=== PATIENT | female | born 1945 | race Caucasian/White ===

== ENCOUNTER 2023-04-03 08:23 | Outpatient (RCR) | payer MEDICARE, SELFPAY | END 2023-04-03 23:59 | disposition home or self-care (01) | LOC: RPT 08:23 | PROVIDERS: ATTENDING PHYSICIAN Family Medicine | DX: M54.12 Radiculopathy, cervical region (principal) | CPT/HCPCS: 97110; 97162 ==

== ENCOUNTER 2023-05-06 10:25 | Outpatient (RCR) | payer MEDICARE, SELFPAY | END 2023-05-06 23:59 | disposition home or self-care (01) | LOC: RPT 10:25 | PROVIDERS: ATTENDING PHYSICIAN Family Medicine | DX: M54.12 Radiculopathy, cervical region (principal); Z73.6 Limitation of activities due to disability; M79.602 Pain in left arm | CPT/HCPCS: 97010; 97110; 97112 ==

== ENCOUNTER → 2023-07-01 14:10 | Outpatient (REF) | payer MEDICARE, SELFPAY | LOC: WDC 14:10 | PROVIDERS: ATTENDING PHYSICIAN Family Medicine | DX: N64.4 Mastodynia (principal); Z87.2 Personal history of diseases of the skin and subcutaneous tissue | CPT/HCPCS: 76642; 77062; 77066 ==

== ENCOUNTER → 2023-10-17 10:15 | Outpatient (REF) | payer MEDICARE, SELFPAY | LOC: MRI 10:15 | PROVIDERS: ATTENDING PHYSICIAN Family Medicine | DX: M25.512 Pain in left shoulder (principal); G89.29 Other chronic pain; M54.12 Radiculopathy, cervical region | CPT/HCPCS: 72141 ==

== ENCOUNTER 2023-11-03 16:40 | Outpatient (RCR) | payer MEDICARE, SELFPAY | END 2023-11-03 23:59 | disposition home or self-care (01) | LOC: RPT 16:40 | PROVIDERS: ATTENDING PHYSICIAN Family Medicine | DX: M54.12 Radiculopathy, cervical region (principal); G89.29 Other chronic pain; M25.512 Pain in left shoulder | CPT/HCPCS: 97010; 97110; 97162 ==

== ENCOUNTER 2023-11-26 15:59 | Outpatient (RCR) | payer MEDICARE, SELFPAY | END 2023-11-26 23:59 | disposition home or self-care (01) | LOC: RPT 15:59 | PROVIDERS: ATTENDING PHYSICIAN Family Medicine | DX: M54.12 Radiculopathy, cervical region (principal); G89.29 Other chronic pain; M25.512 Pain in left shoulder; Z73.6 Limitation of activities due to disability | CPT/HCPCS: 97010; 97110; 97112 ==

== ENCOUNTER 2023-11-28 11:44 | Emergency (ER) | payer MEDICARE, SELFPAY ==
[2023-11-28 11:51] VITALS: BP 171/95
[2023-11-28 13:10] VITALS: BMI 26.5
--- NOTE | 2023-11-28 14:33 | ED.GENMED ---
History of Present Illness
General
Chief Complaint: Musculo-Skeletal Complaint
Source: patient
Exam Limitations: none
Time Seen by Provider: 11/28/23 13:50
Nursing documentation reviewed up to this point in time: agreed with
History of Present Illness
History of Present Illness:
Patient is a 78-year-old female who presents to the ER complaining of neck pain rating down left arm. She reports she was diagnosed with a pinched nerve in her neck. She had an MRI October 16. She recently saw orthopedics, [facility]
on Thursday and had a shot in her neck and is scheduled for an epidural on but cannot wait. She feels pain in her posterior neck and has pain with movement of neck and radiates to left shoulder arm. She denies any numbness tingling or
weakness. She does have a prescription for Percocet but was afraid to take the whole tablet and took a quarter of the tablet.
Past History
Past History
ED Past Medical History: HTN and Psychiatric (Anxiety)
ED Past Surgical History: Cholecystectomy, Tonsilectomy and Other (Cyst removed from bilateral breasts)
Review of Systems
Review of Systems
Allergies reviewed?: Yes
All Other Systems: ROS reviewed and negative except as documented in HPI and ROS
Constitutional: Reports no symptoms; Denies fever, fatigue or chills
Musculoskeletal: Reports neck pain and other (Neck pain radiating to left arm )
Skin: Reports no symptoms
Psychiatric: Reports no symptoms
Phy Exam
General Physical Exam
General Presentation: no apparent distress
General age: appears stated age
General Skin: warm and dry
General Habitus: normal
General Mental: alert
Neurological Exam
Neurological Exam: alert and oriented x3
Musculoskeletal Exam
Musculoskeletal Exam: other (Tender throughout theCervical muscle,+ discomfort with movement of neck extension flexion right and left movement )
Skin Exam
Skin Exam: normal color and warm/dry
Course
Orders/Labs/Results
Orders:
Orders
11/28/23 14:29
diazePAM [Valium Injection] 5 mg IM NOW STA
11/28/23 14:32
Acetaminophen [Tylenol] 1,000 mg PO NOW STA
Ketorolac [Toradol] 30 mg IM NOW STA
Lidocaine [Lidocaine 4% Patch] 1 patch TOPICAL NOW STA
Apply Lidocaine patch(s) to:: neck
Vital Signs
Initial and Last Documented VS:
Initial Vital Signs
Temp Pulse Resp BP Pulse Ox
99.7 F 106 18 171/95 96
11/28/23 11:51 11/28/23 11:51 11/28/23 11:51 11/28/23 11:51 11/28/23 11:51
Last Documented Vital Signs
Temp Pulse Resp BP Pulse Ox
99.7 F 87 18 169/81 96
11/28/23 11:51 11/28/23 16:00 11/28/23 11:51 11/28/23 16:00 11/28/23 11:51
MDM/Problems Addressed
Differential Diagnosis Includes:
not limited to: Cervical radiculopathy, muscle spasm
MDM/Problems Addressed:
Patient with pinched nerve in neck confirmed by MRI has an appointment with orthopedics again for epidural this . She has obvious muscle spasm in the neck with radiculopathy down her left arm. She was given Valium and Toradol here feeling
better. She does have prescription for Percocet . Will DC with steroids for the next 4 days as she has the epidural the following day on . Discussed warm moist heat and gentle range of motion.
*Critical Care Note
Total Time (30-74mins, 75-104mins- exclusive of procedures): Not Applicable
ED Attending Note
-
Portions of this chart may have been created with voice recognition software.� Occasional wrong word or��sound alike� substitutions may have occurred due to the inherent limitations of voice recognition software.
Discharge Plan
Departure
Patient Disposition: Home (Routine Discharge)
Date of Disposition: 11/28/23
Time of Disposition: 16:05
Patient with high blood pressure during this ER visit?: Yes
Condition: Fair
Covid-19: Not Applicable
Discharge Problem:
Cervical radiculopathy, Muscle spasm
Instructions: Radiculopathy (DC), Muscle Spasm ED
Prescriptions:
New
prednisone 20 mg tablet
40 mg PO DAILY Qty: 8 0RF
No Action
enalapril maleate 10 MG tablet
10 mg PO 1200,2200
amlodipine 2.5 MG tablet
2.5 mg PO HS
simvastatin 40 MG tablet
40 mg PO 1800
alprazolam 0.25 MG tablet
0.25 mg PO Q8HPRN PRN (Reason: anxiety)
aspirin 81 MG tablet,delayed release (DR/EC)
81 mg PO DAILY
calcium carbonate 600 MG tablet
600 mg PO 1800
raloxifene 60 MG tablet
60 mg PO DAILY
fluticasone propionate 1 SPRAY spray,suspension
1 spray intranasal DAILY
loratadine 10 MG tablet
5 mg PO DAILY
magnesium oxide 250 MG tablet
250 mg PO 1800
coenzyme Q10 [Co Q-10] 200 MG capsule
200 mg PO BID
fish oil-dha-epa 1 EACH capsule
1 ea PO BID
cholecalciferol (vitamin D3) 1,000 UNITS tablet
1,000 units PO BID
vitamin E (dl, acetate) 400 UNITS capsule
400 units PO BID
multivitamin with folic acid [Tab-A-Cole] 1 TABLET tablet
1 tab PO DAILY
Referrals:
Katya Beltran, [Family Provider] -
Activity Restrictions/Additional Instructions:
Follow-up with your orthopedics physician for epidural as scheduled. You may continue your Percocet as needed. A prescription for prednisone to take daily for the next 4 days was sent to your pharmacy take as directed. Return if any worsening of
symptoms
Interventions
Interventions:
*Risk Screen - Suicide Last Done: 11/28/23 11:51
*General Assessment Last Done: 11/28/23 11:51
*Neglect/Abuse Screening Last Done: 11/28/23 11:51
ED- Fall Risk Assessment Last Done: 11/28/23 13:15
*ED COVID-19 Vaccine History Last Done: 11/28/23 13:11
ED-Musculoskeletal Assessment Last Done: 11/28/23 13:15
Discharge Date and Time
Print Language: CANADIAN
[2023-11-28] MEDS: TYLENOL 1000 MG PO (14:41)
[2023-11-28] MEDS: LIDOCAINE 4% PATCH 1 PATCH TOPICAL (14:42)
[2023-11-28] MEDS: TORADOL 30 MG IM (14:44)
[2023-11-28] MEDS: VALIUM INJECTION 5 MG IM (14:47)
[2023-11-28 16:00] VITALS: BP 169/81
== END 2023-11-28 16:23 | disposition home or self-care (01) ==
LOC: EMR 11:44
PROVIDERS: EMERGENCY PHYSICIAN Emergency Medicine; FAMILY PHYSICIAN Family Medicine
DX: M54.12 Radiculopathy, cervical region (principal); M62.838 Other muscle spasm; M25.512 Pain in left shoulder; G58.8 Other specified mononeuropathies; I10 Essential (primary) hypertension; F41.9 Anxiety disorder, unspecified; Z79.82 Long term (current) use of aspirin; Z90.49 Acquired absence of other specified parts of digestive tract
CPT/HCPCS: 99284; 96372 ×2

== ENCOUNTER → 2024-05-30 14:20 | Outpatient (REF) | payer MEDICARE, OTHER, SELFPAY | LOC: RAD 14:20 | PROVIDERS: ATTENDING PHYSICIAN Nurse Practitioner; FAMILY PHYSICIAN Family Medicine | DX: M79.604 Pain in right leg (principal) | CPT/HCPCS: 93971 ==

== ENCOUNTER → 2024-07-07 08:47 | Outpatient (REF) | payer MEDICARE, OTHER, SELFPAY | LOC: RAD 08:47 | PROVIDERS: ATTENDING PHYSICIAN Family Medicine | DX: R05.9 Cough, unspecified (principal); R09.82 Postnasal drip; R06.2 Wheezing | CPT/HCPCS: 71046 ==

== ENCOUNTER → 2024-07-15 14:04 | Outpatient (REF) | payer MEDICARE, OTHER, SELFPAY | LOC: HWRAD 14:04 | PROVIDERS: ATTENDING PHYSICIAN Family Medicine | DX: R93.89 Abnormal findings on diagnostic imaging of other specified body structures (principal) | CPT/HCPCS: 76700 ==

== ENCOUNTER → 2024-09-07 10:02 | Outpatient (REF) | payer MEDICARE, OTHER, SELFPAY | LOC: RAD 10:02 | PROVIDERS: ATTENDING PHYSICIAN Physician Assistant; FAMILY PHYSICIAN Family Medicine | DX: R05.3 Chronic cough (principal) | CPT/HCPCS: 71046 ==